=== PATIENT | female | born 1930 | race Caucasian/White ===

== ENCOUNTER 2017-11-16 16:07 | Inpatient (IN) | payer MEDICARE, BC ==
[~2017-11-16] VITALS: Ht 157.5 cm; Wt 67.7 kg
[~2017-11-16 16:07] MED LIST: ACCUPRIL5 MG PO; ACETAMINOPHEN325 MG PO; ANTIVERT25 MG PO; ARICEPT10 MG PO; ASPIRIN81 MG PO; CALCIUM 500 + D1 TAB PO; CALCIUM 600+D T1 TA1 PO; CARDURA4 MG PO; CENTRUM COMPLE1 EACH PO; CETAPHIL TP; CHOLESTYRAMIN4 G/PK1 PO; FISH OIL 1,2001 CAP PO; FLORASTOR250 MG PO; GLUCOPHAGE1000 MG PO; HYDROCODON-ACET15 ML PO; KENALOG 0.1 % 115 GM TP; LEXAPRO10 MG PO; LIBRIUM 10 MG C10 MG PO; LISINOPRIL2.5 MG PO; LOMOTIL TABLET1 TAB PO; MACROBID100 MG PO; MAG-OXIDE400 MG PO; MOBIC7.5 MG PO; MULTIPLE VITAMI1 TA1 PO; NEURONTIN 300300 MG PO; OMNICEF300 MG PO; PACERONE200 MG PO; POTASSIUM99 M1 PO; PRILOSEC20 MG PO; PROCRIT; PROSCAR5 MG PO; PROTONIX40 MG PO; TIROSINT100 MCG PO; ULTRAM50 MG PO; ZANTAC150 MG PO
[2017-11-16 16:50] LABS: APPEARANCE HAZY (CLEAR); BILIRUBIN NEGATIVE (NEGATIVE); COLOR YELLOW (YELLOW); GLUCOSE NEGATIVE (NEGATIVE); KETONE NEGATIVE (NEGATIVE); NITRITE NEGATIVE (NEGATIVE); PH 5.5 (5.0-6.0); PROTEIN NEGATIVE (NEGATIVE); SPECIFIC GRAVITY 1.015 (1.005-1.020); UROBILINOGEN NORMAL (NORMAL)
[2017-11-16 16:57] LABS: AMORPHOUS SEDIMENT <1+ /lpf (NONE SEEN); BACTERIA FEW /hpf (NONE SEEN); GRANULAR CAST RARE /lpf (NONE SEEN); HYALINE CAST RARE /lpf (NONE SEEN); RED CELLS - URINE OCC /hpf (0-5); WHITE CELLS - URINE 0-5 /hpf (0-5)
[2017-11-16 17:02] LABS: BASOPHILS 0.3 % (0-2); EOSINOPHILS 0.1 % (0-7); HEMATOCRIT 32.9 % (36.0-48.0); HEMOGLOBIN 10.9 g/dL (12-16); IMMATURE GRANULOCYTES 0.6 % (0-5); LYMPHOCYTES 7.3 % (15-50); MCH 29.3 pg (26.0-34.0); MCHC 33.1 g/dL (31.0-37.0); MCV 88.4 fL (80.0-100.0); MEAN PLATELET VOLUME 11.1 fL (7.4-10.4); MONOCYTES 6.7 % (2-11); RBC 3.72 10x6/uL (4.00-5.40); RDW 17.2 % (11.5-14.5); WBC 18.8 10x3/uL (4.8-10.8)
[2017-11-16 17:07] LABS: PLATELET COUNT 209 10x3/uL (130-400)
[2017-11-16 17:21] LABS: ALBUMIN 3.4 g/dL (3.4-5.0); ANION GAP 9.5 mmol/L (8-16); BILIRUBIN - TOTAL 0.59 mg/dL (0.2-1.3); CALCIUM 9.7 mg/dL (8.5-10.1); CARBON DIOXIDE 33.3 mmol/L (21.0-32.0); CREATININE - SERUM 1.3 mg/dL (0.6-1.3); POTASSIUM - SERUM 3.8 mmol/L (3.5-5.1); PROTEIN - SERUM 6.7 g/dL (6.4-8.2)
[2017-11-16 17:32] LABS: INR 1.05 (0.85-1.17); PROTIME 13.1 SECONDS (11.6-15.0)
[2017-11-17 04:00] VITALS: BP 113/42
[2017-11-17 05:52] LABS: BASOPHILS 0.1 % (0-2); EOSINOPHILS 0.2 % (0-7); HEMATOCRIT 34.1 % (36.0-48.0); HEMOGLOBIN 11.2 g/dL (12-16); IMMATURE GRANULOCYTES 0.7 % (0-5); LYMPHOCYTES 9.5 % (15-50); MCH 29.1 pg (26.0-34.0); MCHC 32.8 g/dL (31.0-37.0); MCV 88.6 fL (80.0-100.0); MEAN PLATELET VOLUME 10.7 fL (7.4-10.4); MONOCYTES 7.2 % (2-11); NEUTROPHILS 82.3 % (40-80); PLATELET COUNT 201 10x3/uL (130-400); RBC 3.85 10x6/uL (4.00-5.40); RDW 17.3 % (11.5-14.5); WBC 16.5 10x3/uL (4.8-10.8)
[2017-11-17 06:13] LABS: ANION GAP 11.4 mmol/L (8-16); CALCIUM 9.3 mg/dL (8.5-10.1); CARBON DIOXIDE 32.9 mmol/L (21.0-32.0); CREATININE - SERUM 1.3 mg/dL (0.6-1.3); POTASSIUM - SERUM 3.3 mmol/L (3.5-5.1)
[2017-11-17 06:56] VITALS: BP 101/36; Ht 157.5 cm; Wt 67.7 kg
[2017-11-17 08:33] VITALS: BP 124/49
[2017-11-17 12:08] VITALS: BP 119/49
[2017-11-17 15:40] VITALS: BP 116/52
[2017-11-17 20:00] VITALS: BP 116/91
[2017-11-18 05:46] LABS: BASOPHILS 0.2 % (0-2); EOSINOPHILS 0.4 % (0-7); HEMATOCRIT 31.8 % (36.0-48.0); HEMOGLOBIN 10.1 g/dL (12-16); IMMATURE GRANULOCYTES 0.8 % (0-5); LYMPHOCYTES 13.8 % (15-50); MCH 28.7 pg (26.0-34.0); MCHC 31.8 g/dL (31.0-37.0); MCV 90.3 fL (80.0-100.0); MONOCYTES 7.1 % (2-11); NEUTROPHILS 77.7 % (40-80); PLATELET COUNT 187 10x3/uL (130-400); RBC 3.52 10x6/uL (4.00-5.40); RDW 17.6 % (11.5-14.5); WBC 15.9 10x3/uL (4.8-10.8)
[2017-11-18 06:11] LABS: ALBUMIN 2.8 g/dL (3.4-5.0); ANION GAP 9.6 mmol/L (8-16); BILIRUBIN - TOTAL 0.43 mg/dL (0.2-1.3); CALCIUM 8.8 mg/dL (8.5-10.1); CARBON DIOXIDE 33.8 mmol/L (21.0-32.0); CREATININE - SERUM 1.3 mg/dL (0.6-1.3); POTASSIUM - SERUM 3.4 mmol/L (3.5-5.1); PROTEIN - SERUM 6.1 g/dL (6.4-8.2)
[2017-11-18 09:29] VITALS: BP 149/63
[2017-11-18 14:18] VITALS: BP 105/53
[2017-11-19 04:00] VITALS: BP 131/53
[2017-11-19 06:57] LABS: BASOPHILS 0.4 % (0-2); EOSINOPHILS 0.8 % (0-7); HEMATOCRIT 31.4 % (36.0-48.0); HEMOGLOBIN 10.1 g/dL (12-16); IMMATURE GRANULOCYTES 0.7 % (0-5); MCH 28.9 pg (26.0-34.0); MCHC 32.2 g/dL (31.0-37.0); MEAN PLATELET VOLUME 11.3 fL (7.4-10.4); MONOCYTES 6.1 % (2-11); PLATELET COUNT 197 10x3/uL (130-400); RBC 3.49 10x6/uL (4.00-5.40); RDW 17.7 % (11.5-14.5)
[2017-11-19 07:31] LABS: ALBUMIN 2.9 g/dL (3.4-5.0); ANION GAP 11.8 mmol/L (8-16); BILIRUBIN - TOTAL 0.45 mg/dL (0.2-1.3); CALCIUM 9.1 mg/dL (8.5-10.1); CARBON DIOXIDE 29.8 mmol/L (21.0-32.0); CREATININE - SERUM 1.1 mg/dL (0.6-1.3); POTASSIUM - SERUM 3.6 mmol/L (3.5-5.1); PROTEIN - SERUM 6.2 g/dL (6.4-8.2)
[2017-11-19 08:26] VITALS: BP 140/87
[2017-11-19 11:56] VITALS: BP 119/68
[2017-11-19] MEDS ORDERED: MOBIC7.5 MG PO (13:40)
[2017-11-19] MEDS ORDERED: FLORAJEN3 CAPS460 MG PO (13:40)
[2017-11-19] MEDS ORDERED: COLACE100 MG PO (13:41)
[2017-11-19] MEDS ORDERED: MIRALAX17 GM PO (13:41)
[2017-11-19] MEDS ORDERED: OMNICEF300 MG PO (13:42)
== END 2017-11-19 17:24 | disposition home health service (06) | DRG 389 ==
LOC: D.ER 16:07 → D.MS 22:30 → OBSVTIME 22:30 → D.MS 11-17 12:44
PROVIDERS: Family Medicine; Nurse Practitioner Family
PROC: 0T9B70Z Drainage of Bladder with Drainage Device, Via Natural or Artificial Opening (ICD-10-PCS; principal; 2017-11-16)
DX: K56.41 Fecal impaction (principal); N39.0 Urinary tract infection, site not specified; F03.90 Unspecified dementia, unspecified severity, without behavioral disturbance, psychotic disturbance, mood disturbance, and anxiety; E86.0 Dehydration; E87.6 Hypokalemia; R13.12 Dysphagia, oropharyngeal phase; E11.40 Type 2 diabetes mellitus with diabetic neuropathy, unspecified; E11.65 Type 2 diabetes mellitus with hyperglycemia; Z79.84 Long term (current) use of oral hypoglycemic drugs

== ENCOUNTER → 2018-04-17 09:42 | Outpatient (CLI) | payer MEDICARE, BC ==
[2017-11-17 06:56] VITALS: BMI 27.3
[~2018-04-17 09:42] MED LIST changes: +COLACE100 MG PO; +FLAGYL500 MG PO; +FLORAJEN3 CAPS460 MG PO; +MIRALAX17 GM PO
== END | disposition home or self-care (01) ==
LOC: D.US 09:42
DX: M79.604 Pain in right leg (principal)

== ENCOUNTER 2018-05-21 12:02 | Inpatient (IN) | payer MEDICARE, BC ==
[2018-05-21] VITALS (10 sets, daily range): BP systolic 143–198; BP diastolic 61–83
[~2018-05-21] VITALS: Ht 157.5 cm; Wt 60.8 kg
--- NOTE | ~2018-05-21 | MORECARE ---
CASE MANAGEMENT DISCHARGE SUMMARY PATIENT: YAYO TATUM UNIT: [id number] ADM DATE: 05/22/18 AGE: 88 : 32 SEX: F ROOM/BED: D.2223 AUTHOR: CASE, LEATHER FITTER PHYSICIAN: REFERRING PHYSICIAN: MARSHALL NIETO MD DATE OF SERVICE: 05/22/18 Discharge Plan Patient Name: YAYO TATUM Facility: [facility]:[place] : 1930 Planned Disposition: Home Anticipated Discharge Date: Discharge Date: Expected LOS: Initial Reviewer: [email or web address] Initial Review Date: 05/21/2018 Generated: 05/28/18 11:34 am Comments DCP- Discharge Planning Updated by [email or web address]: Reny Woo on 05/28/18 9:[address] Patient Name: YAYO TATUM Admission Status: ER Accout number: [id number] Admission Date: 05-22-2018 : 1930 Admission Diagnosis:DIARRHEA, UNSPECIFIED Attending: MARSHALL NIETO Current LOS: 6 Anticipated DC Date: Planned Disposition: Home Primary Insurance: MEDICARE A & B Discharge Planning Comments: CM met with patient to assess discharge planning needs. Patient stated that she lives independently with her at home and plans to return there at discharge. She is unsure how she is going to get home, because her does not drive. She states that she has a shower bench in her home and a walker at home. I think she would benefit with home health and pt at home. She is agreeable to it, but did not pick a company. There are 2 steps in her home and she denies any issues with them. CM will continue to follow and assist with DC planning. IMM served and explained. PCP: [facility] Ino Tatum (son) [phone] Surtass Analyst: Reny Woo DCPIA - Discharge Planning Initial Assessment Updated by [email or web address]: Reny Woo on 05/28/18 10:28 am * Is the patient Alert and Oriented? Yes * How many steps to enterexit or inside your home? * PCP margi * Carmen cooper * Preadmission Environment Home with Family * ADLs Independent * Equipment Cane Rolling Walker Tub Bench * List name and contact numbers for known caregivers / representatives who currently or will assist patient after discharge: Ino Tatum ( [phone]) * Verbal permission to speak to the caregivers and representatives has been obtained from the patient. N/A * Community resources currently utilized None * Additional services required to return to the preadmission environment? Yes * Can the patient safely return to the preadmission environment? Yes * Has this patient been hospitalized within the prior 30 days at any hospital? No Patient Name: YAYO TATUM Page [id number] All edits/amendments must be made on the electronic document DICTATION DATE: 05/28/18 1033 SEGMENT ASSEMBLER: 05/28/18 1033 RPT#: [id number] DC DATE: STATUS: ADM IN [facility] [address] [place] [address] END OF REPORT
[~2018-05-21 12:02] MED LIST changes: -FLAGYL500 MG PO
[2018-05-21 13:27] LABS: ALBUMIN 3.7 g/dL (3.4-5.0); ALKALINE PHOSPHATASE 73 U/L (46-116); ALT (SGPT) 14 U/L (10-68); BILIRUBIN - TOTAL 0.98 mg/dL (0.2-1.3); CALC OSMOLALITY 279 mosm/kg (275-300); CALCIUM 8.9 mg/dL (8.5-10.1); CARBON DIOXIDE 33.5 mmol/L (21.0-32.0); CHLORIDE - SERUM 101 mmol/L (98-107); CREATININE - SERUM 1.1 mg/dL (0.6-1.3); GLUCOSE 105 mg/dL (74-106); POTASSIUM - SERUM 3.6 mmol/L (3.5-5.1); PROTEIN - SERUM 7.1 g/dL (6.4-8.2); SODIUM 140 mmol/L (136-145); UREA NITROGEN 15 mg/dL (7-18); eGFR NON AFRICAN AMERICAN 50 mL/min (90-120)
[2018-05-21 13:35] LABS: BASOPHILS 0.4 % (0-2); EOSINOPHILS 0.2 % (0-7); HEMATOCRIT 36.9 % (36.0-48.0); HEMOGLOBIN 12.5 g/dL (12-16); IMMATURE GRANULOCYTES 0.5 % (0-5); LYMPHOCYTES 18.5 % (15-50); MCH 30.2 pg (26.0-34.0); MCHC 33.9 g/dL (31.0-37.0); MCV 89.1 fL (80.0-100.0); NEUTROPHILS 75.4 % (40-80); RBC 4.14 10x6/uL (4.00-5.40); RDW 18.7 % (11.5-14.5); WBC 12.4 10x3/uL (4.8-10.8)
[2018-05-21 13:36] LABS: PLATELET COUNT 248 10x3/uL (130-400)
[2018-05-21 13:38] LABS: CKMB 1.2 U/L (0.0-3.6); CREATINE KINASE 71 UL (21-215)
[2018-05-21 13:42] LABS: APPEARANCE CLEAR (CLEAR); BILIRUBIN NEGATIVE (NEGATIVE); COLOR YELLOW (YELLOW); GLUCOSE NEGATIVE (NEGATIVE); KETONE NEGATIVE (NEGATIVE); NITRITE NEGATIVE (NEGATIVE); PROTEIN NEGATIVE (NEGATIVE)
[2018-05-21 13:42] LABS: TROPONIN-I < 0.017 ng/mL (0.000-0.060)
[2018-05-22 04:04] VITALS: BP 165/67
[2018-05-22 04:36] VITALS: BP 165/67; BMI 24.5
[2018-05-22 07:33] LABS: BASOPHILS 0.3 % (0-2); EOSINOPHILS 0.3 % (0-7); HEMATOCRIT 36.6 % (36.0-48.0); HEMOGLOBIN 12.3 g/dL (12-16); IMMATURE GRANULOCYTES 0.5 % (0-5); MCH 29.9 pg (26.0-34.0); MCHC 33.6 g/dL (31.0-37.0); MCV 88.8 fL (80.0-100.0); MEAN PLATELET VOLUME 10.5 fL (7.4-10.4); MONOCYTES 4.9 % (2-11); PLATELET COUNT 279 10x3/uL (130-400); RBC 4.12 10x6/uL (4.00-5.40); RDW 18.4 % (11.5-14.5); WBC 12.3 10x3/uL (4.8-10.8)
[2018-05-22 08:09] VITALS: BP 135/47
[2018-05-22 08:54] LABS: ALBUMIN 3.5 g/dL (3.4-5.0); ANION GAP 12.9 mmol/L (8-16); BILIRUBIN - TOTAL 1.08 mg/dL (0.2-1.3); CALCIUM 8.4 mg/dL (8.5-10.1); CARBON DIOXIDE 30.6 mmol/L (21.0-32.0); POTASSIUM - SERUM 3.5 mmol/L (3.5-5.1); PROTEIN - SERUM 6.5 g/dL (6.4-8.2)
[2018-05-22 12:47] VITALS: BP 141/59; Ht 157.5 cm; Wt 60.8 kg
[2018-05-22 15:58] VITALS: BP 106/44
[2018-05-22 19:48] VITALS: BP 114/49
[2018-05-23 01:16] VITALS: BP 126/53
[2018-05-23 04:09] VITALS: BP 157/61
[2018-05-23 06:43] LABS: BASOPHILS 0.3 % (0-2); EOSINOPHILS 0.4 % (0-7); HEMOGLOBIN 11.3 g/dL (12-16); LYMPHOCYTES 11.9 % (15-50); MCH 29.8 pg (26.0-34.0); MCHC 33.2 g/dL (31.0-37.0); MCV 89.7 fL (80.0-100.0); MEAN PLATELET VOLUME 10.2 fL (7.4-10.4); MONOCYTES 7.2 % (2-11); NEUTROPHILS 79.2 % (40-80); PLATELET COUNT 251 10x3/uL (130-400); RBC 3.79 10x6/uL (4.00-5.40); RDW 18.5 % (11.5-14.5)
[2018-05-23 06:44] LABS: WBC 17.8 10x3/uL (4.8-10.8)
[2018-05-23 07:03] LABS: ALBUMIN 2.9 g/dL (3.4-5.0); ANION GAP 5.9 mmol/L (8-16); BILIRUBIN - TOTAL 0.81 mg/dL (0.2-1.3); CALCIUM 7.9 mg/dL (8.5-10.1); CREATININE - SERUM 0.9 mg/dL (0.6-1.3); PROTEIN - SERUM 5.6 g/dL (6.4-8.2)
[2018-05-23 07:04] LABS: POTASSIUM - SERUM 2.9 mmol/L (3.5-5.1)
[2018-05-23 08:23] VITALS: BP 142/46
[2018-05-23 10:30] LABS: MAGNESIUM - SERUM 1.2 mg/dL (1.8-2.4); PHOSPHOROUS 2.7 mg/dL (2.5-4.9)
[2018-05-23 20:22] VITALS: BP 103/36
[2018-05-23 23:17] VITALS: BP 101/48
[2018-05-24 04:38] VITALS: BP 120/55
[2018-05-24 06:00] LABS: BASOPHILS 0.2 % (0-2); EOSINOPHILS 0.5 % (0-7); HEMATOCRIT 33.2 % (36.0-48.0); HEMOGLOBIN 10.8 g/dL (12-16); IMMATURE GRANULOCYTES 1.1 % (0-5); MCH 29.6 pg (26.0-34.0); MCHC 32.5 g/dL (31.0-37.0); MEAN PLATELET VOLUME 10.4 fL (7.4-10.4); MONOCYTES 7.2 % (2-11); PLATELET COUNT 237 10x3/uL (130-400); RBC 3.65 10x6/uL (4.00-5.40); RDW 18.7 % (11.5-14.5); WBC 16.4 10x3/uL (4.8-10.8)
[2018-05-24 06:26] LABS: ALBUMIN 2.6 g/dL (3.4-5.0); ANION GAP 9.4 mmol/L (8-16); BILIRUBIN - TOTAL 0.62 mg/dL (0.2-1.3); CALCIUM 7.4 mg/dL (8.5-10.1); CARBON DIOXIDE 28.5 mmol/L (21.0-32.0); PROTEIN - SERUM 5.1 g/dL (6.4-8.2)
[2018-05-24 06:27] LABS: POTASSIUM - SERUM 3.9 mmol/L (3.5-5.1)
[2018-05-24 09:37] VITALS: BP 167/62
[2018-05-24 13:24] VITALS: BP 165/70
[2018-05-24 17:37] VITALS: BP 126/76
[2018-05-24 19:33] VITALS: BP 115/57
[2018-05-24 23:43] VITALS: BP 155/58
[2018-05-25 04:08] VITALS: BP 151/53
[2018-05-25 05:46] LABS: BASOPHILS 0.2 % (0-2); EOSINOPHILS 0.6 % (0-7); HEMATOCRIT 33.6 % (36.0-48.0); HEMOGLOBIN 11.4 g/dL (12-16); IMMATURE GRANULOCYTES 1.3 % (0-5); LYMPHOCYTES 11.4 % (15-50); MCHC 33.9 g/dL (31.0-37.0); MCV 88.4 fL (80.0-100.0); MEAN PLATELET VOLUME 10.4 fL (7.4-10.4); MONOCYTES 7.1 % (2-11); NEUTROPHILS 79.4 % (40-80); PLATELET COUNT 241 10x3/uL (130-400); RDW 18.5 % (11.5-14.5); WBC 17.9 10x3/uL (4.8-10.8)
[2018-05-25 06:11] LABS: ALBUMIN 2.7 g/dL (3.4-5.0); ANION GAP 8.5 mmol/L (8-16); BILIRUBIN - TOTAL 0.6 mg/dL (0.2-1.3); CALCIUM 8.1 mg/dL (8.5-10.1); CARBON DIOXIDE 29.1 mmol/L (21.0-32.0); CREATININE - SERUM 0.9 mg/dL (0.6-1.3); POTASSIUM - SERUM 3.6 mmol/L (3.5-5.1); PROTEIN - SERUM 5.8 g/dL (6.4-8.2)
[2018-05-25 08:33] VITALS: BP 178/68
[2018-05-25 12:06] VITALS: BP 132/50
[2018-05-25 15:47] VITALS: BP 132/48
[2018-05-25 21:32] VITALS: BP 152/50
[2018-05-26 04:13] VITALS: BP 148/54
[2018-05-26 06:29] LABS: BASOPHILS 0.2 % (0-2); EOSINOPHILS 0.4 % (0-7); HEMATOCRIT 32.2 % (36.0-48.0); HEMOGLOBIN 10.9 g/dL (12-16); LYMPHOCYTES 8.1 % (15-50); MCHC 33.9 g/dL (31.0-37.0); MCV 88.7 fL (80.0-100.0); MEAN PLATELET VOLUME 10.3 fL (7.4-10.4); MONOCYTES 10.4 % (2-11); NEUTROPHILS 79.9 % (40-80); PLATELET COUNT 222 10x3/uL (130-400); RBC 3.63 10x6/uL (4.00-5.40); RDW 18.9 % (11.5-14.5); WBC 18.6 10x3/uL (4.8-10.8)
[2018-05-26 07:00] LABS: ALBUMIN 2.7 g/dL (3.4-5.0); ANION GAP 7.5 mmol/L (8-16); BILIRUBIN - TOTAL 0.79 mg/dL (0.2-1.3); CALCIUM 8.1 mg/dL (8.5-10.1); CREATININE - SERUM 0.9 mg/dL (0.6-1.3); POTASSIUM - SERUM 3.5 mmol/L (3.5-5.1); PROTEIN - SERUM 5.9 g/dL (6.4-8.2)
[2018-05-26 08:24] VITALS: BP 133/83
[2018-05-26 12:40] VITALS: BP 101/62
[2018-05-26 15:37] VITALS: BP 109/45
[2018-05-26 19:54] VITALS: BP 117/73
[2018-05-26 23:32] VITALS: BP 108/38
[2018-05-27] VITALS (7 sets, daily range): BP systolic 84–143; BP diastolic 37–93
[2018-05-27 05:40] LABS: BASOPHILS 0.1 % (0-2); EOSINOPHILS 0.5 % (0-7); HEMOGLOBIN 10.7 g/dL (12-16); IMMATURE GRANULOCYTES 1.5 % (0-5); LYMPHOCYTES 14.6 % (15-50); MCH 29.9 pg (26.0-34.0); MCHC 33.4 g/dL (31.0-37.0); MCV 89.4 fL (80.0-100.0); MEAN PLATELET VOLUME 10.6 fL (7.4-10.4); MONOCYTES 6.5 % (2-11); NEUTROPHILS 76.8 % (40-80); PLATELET COUNT 236 10x3/uL (130-400); RBC 3.58 10x6/uL (4.00-5.40); RDW 18.9 % (11.5-14.5); WBC 14.8 10x3/uL (4.8-10.8)
[2018-05-27 05:57] LABS: ALBUMIN 2.6 g/dL (3.4-5.0); BILIRUBIN - TOTAL 0.61 mg/dL (0.2-1.3); CALCIUM 8.5 mg/dL (8.5-10.1); CARBON DIOXIDE 31.4 mmol/L (21.0-32.0); CREATININE - SERUM 0.9 mg/dL (0.6-1.3); POTASSIUM - SERUM 3.4 mmol/L (3.5-5.1); PROTEIN - SERUM 5.7 g/dL (6.4-8.2)
[2018-05-28 04:23] VITALS: BP 110/41
[2018-05-28 06:29] LABS: BASOPHILS 0.3 % (0-2); EOSINOPHILS 0.6 % (0-7); HEMATOCRIT 32.1 % (36.0-48.0); HEMOGLOBIN 10.4 g/dL (12-16); IMMATURE GRANULOCYTES 1.7 % (0-5); LYMPHOCYTES 13.5 % (15-50); MCH 29.4 pg (26.0-34.0); MCHC 32.4 g/dL (31.0-37.0); MCV 90.7 fL (80.0-100.0); MEAN PLATELET VOLUME 10.4 fL (7.4-10.4); MONOCYTES 6.3 % (2-11); NEUTROPHILS 77.6 % (40-80); PLATELET COUNT 224 10x3/uL (130-400); RBC 3.54 10x6/uL (4.00-5.40); RDW 19.3 % (11.5-14.5); WBC 15.1 10x3/uL (4.8-10.8)
[2018-05-28 06:52] LABS: ANION GAP 8.1 mmol/L (8-16); CALCIUM 8.4 mg/dL (8.5-10.1); CARBON DIOXIDE 31.2 mmol/L (21.0-32.0); CREATININE - SERUM 1.1 mg/dL (0.6-1.3)
[2018-05-28 06:53] LABS: POTASSIUM - SERUM 4.3 mmol/L (3.5-5.1)
[2018-05-28 07:58] VITALS: BP 127/44
[2018-05-28 12:43] VITALS: BP 130/50
[2018-05-28 16:20] VITALS: BP 90/50
[2018-05-28 19:34] VITALS: BP 99/44
[2018-05-28 23:25] VITALS: BP 97/36
[2018-05-29 04:31] VITALS: BP 119/46
[2018-05-29 06:17] LABS: BASOPHILS 0.2 % (0-2); EOSINOPHILS 0.7 % (0-7); HEMATOCRIT 31.5 % (36.0-48.0); HEMOGLOBIN 10.3 g/dL (12-16); IMMATURE GRANULOCYTES 1.3 % (0-5); LYMPHOCYTES 13.8 % (15-50); MCH 29.7 pg (26.0-34.0); MCHC 32.7 g/dL (31.0-37.0); MCV 90.8 fL (80.0-100.0); MEAN PLATELET VOLUME 10.9 fL (7.4-10.4); MONOCYTES 6.2 % (2-11); NEUTROPHILS 77.8 % (40-80); PLATELET COUNT 222 10x3/uL (130-400); RBC 3.47 10x6/uL (4.00-5.40); RDW 19.4 % (11.5-14.5); WBC 15.1 10x3/uL (4.8-10.8)
[2018-05-29 06:35] LABS: ANION GAP 11.4 mmol/L (8-16); CALCIUM 7.9 mg/dL (8.5-10.1); CARBON DIOXIDE 29.4 mmol/L (21.0-32.0); CREATININE - SERUM 1.2 mg/dL (0.6-1.3); POTASSIUM - SERUM 3.8 mmol/L (3.5-5.1)
[2018-05-29 07:43] VITALS: BP 142/49
[2018-05-29 12:23] VITALS: BP 116/50
[2018-05-29 15:24] VITALS: BP 123/60
[2018-05-29 19:11] LABS: OVA + PARASITE EXAM Final report (())
[2018-05-29 19:50] VITALS: BP 123/70
[2018-05-30 04:00] VITALS: BP 93/41
[2018-05-30 07:33] LABS: BASOPHILS 0.3 % (0-2); EOSINOPHILS 0.9 % (0-7); HEMATOCRIT 29.9 % (36.0-48.0); HEMOGLOBIN 9.9 g/dL (12-16); IMMATURE GRANULOCYTES 1.5 % (0-5); LYMPHOCYTES 17.9 % (15-50); MCH 29.8 pg (26.0-34.0); MCHC 33.1 g/dL (31.0-37.0); MCV 90.1 fL (80.0-100.0); MEAN PLATELET VOLUME 10.5 fL (7.4-10.4); MONOCYTES 5.7 % (2-11); NEUTROPHILS 73.7 % (40-80); PLATELET COUNT 204 10x3/uL (130-400); RBC 3.32 10x6/uL (4.00-5.40); WBC 11.6 10x3/uL (4.8-10.8)
[2018-05-30 07:46] LABS: ANION GAP 10.9 mmol/L (8-16); CARBON DIOXIDE 28.2 mmol/L (21.0-32.0); CREATININE - SERUM 0.8 mg/dL (0.6-1.3); POTASSIUM - SERUM 4.1 mmol/L (3.5-5.1)
[2018-05-30 07:48] VITALS: BP 144/55
[2018-05-30 12:08] VITALS: BP 127/41
[2018-05-30] MEDS ORDERED: FLAGYL500 MG PO ×2 (13:59→14:01)
== END 2018-05-30 16:20 | disposition home health service (06) | DRG 371 ==
LOC: D.ER 12:02 → D.MS 18:46 → OBSVTIME 18:46 → D.MS 05-22 15:11 → D.SDCHOLD 05-28 14:45 → D.MS 05-28 14:47
PROVIDERS: Family Medicine; Internal Medicine Nephrology
DX: A04.72 Enterocolitis due to Clostridium difficile, not specified as recurrent (principal); R53.2 Functional quadriplegia; N39.0 Urinary tract infection, site not specified; E87.6 Hypokalemia; E86.0 Dehydration; E11.40 Type 2 diabetes mellitus with diabetic neuropathy, unspecified; Z79.84 Long term (current) use of oral hypoglycemic drugs; F32.9 Major depressive disorder, single episode, unspecified; D64.9 Anemia, unspecified

== ENCOUNTER → 2018-11-03 12:46 | Outpatient (CLI) | payer MEDICARE, BC ==
[2018-05-22 12:47] VITALS: BMI 24.5
[~2018-11-03 12:46] MED LIST changes: +FLAGYL500 MG PO
== END | disposition home or self-care (01) ==
LOC: D.RAD 12:46
DX: R13.10 Dysphagia, unspecified (principal)

== ENCOUNTER → 2018-11-12 09:41 | Outpatient (CLI) | payer MEDICARE, BC ==
[2018-05-22 12:47] VITALS: BMI 24.5
== END | disposition home or self-care (01) ==
LOC: D.RAD 09:41
DX: R13.10 Dysphagia, unspecified (principal)

== ENCOUNTER 2019-07-05 07:22 | Emergency (ER) | payer MEDICARE, BC ==
[~2019-07-05] VITALS: Ht 157.5 cm; Wt 59.1 kg
[2019-07-05 07:26] VITALS: Ht 157.5 cm; Wt 59.1 kg
[2019-07-05] MEDS ORDERED: FISH OIL 1,0001 CA1 PO (07:29)
[2019-07-05] MEDS ORDERED: VITAMIN E200 UNI1 PO (07:29)
[2019-07-05] MEDS ORDERED: FUROSEMIDE20 MG PO (07:30)
[2019-07-05] MEDS ORDERED: BENTYL10 MG PO (07:30)
[2019-07-05] MEDS ORDERED: ZOFRAN4 MG PO (07:31)
[2019-07-05 08:59] VITALS: BP 125/53
== END 2019-07-05 08:58 | disposition home or self-care (01) ==
LOC: D.ER 07:22
DX: S00.93XA Contusion of unspecified part of head, initial encounter (principal); W19.XXXA Unspecified fall, initial encounter; E11.9 Type 2 diabetes mellitus without complications; I10 Essential (primary) hypertension; K21.9 Gastro-esophageal reflux disease without esophagitis

== ENCOUNTER 2019-10-06 11:08 | Emergency (ER) | payer MEDICARE, BC ==
[~2019-10-06] VITALS: Ht 157.5 cm; Wt 58.6 kg
[~2019-10-06 11:08] MED LIST changes: +BENTYL10 MG PO; +FISH OIL 1,0001 CA1 PO; +FUROSEMIDE20 MG PO; +VITAMIN E200 UNI1 PO; +ZOFRAN4 MG PO
[2019-10-06 11:37] VITALS: Ht 157.5 cm; Wt 58.6 kg
[2019-10-06 15:47] VITALS: BP 119/52
== END 2019-10-06 15:47 | disposition home or self-care (01) ==
LOC: D.ER 11:08
DX: S00.93XA Contusion of unspecified part of head, initial encounter (principal); W06.XXXA Fall from bed, initial encounter; E11.9 Type 2 diabetes mellitus without complications; Z79.84 Long term (current) use of oral hypoglycemic drugs; M54.9 Dorsalgia, unspecified; K21.9 Gastro-esophageal reflux disease without esophagitis